=== PATIENT | female | born 1995 | race African-American/Black ===

== ENCOUNTER 2022-08-21 05:54 | Inpatient (IN) | payer SELFPAY ==
[2022-08-21] VITALS (7 sets, daily range): BP systolic 98–127; BP diastolic 40–82; O2SAT 94–98
[~2022-08-21] VITALS: Ht 157.5 cm; Wt 65.8 kg
[2022-08-21] MEDS ORDERED: ALBU6.7H6 INH (06:13)
[2022-08-21] MEDS ORDERED: ALBU2.5V10 INH (06:13)
[2022-08-21] MEDS ORDERED: ADENOSINE 6MG/2ML INJECTION (J0153) IV STA ×3 (06:15→06:33)
[2022-08-21 06:21] LABS: BASO % 0.2 % (0.0-1.0); EOS # 0.1 10^3/uL (0.0-0.5); EOS % 0.9 % (0.0-3.0); HEMATOCRIT 41.6 % (36.0-47.0); HEMOGLOBIN 13.6 g/dl (12.0-15.5); LYMPH # 0.5 10^3/uL (1.5-5.0); LYMPH % 4.3 % (24.0-44.0); MEAN CORPUSCULAR HGB CONC 32.7 g/dl (32.0-36.5); MEAN CORPUSCULAR VOLUME 88.7 fl (80.0-96.0); MONO # 0.7 10^3/uL (0.0-0.8); MONO % 6.3 % (2.0-8.0); NEUTROPHILS # 9.7 10^3/uL (1.5-8.5); NEUTROPHILS % 87.8 % (36.0-66.0); PLATELET COUNT, AUTOMATED 235 10^3/uL (150-450); RED BLOOD COUNT 4.69 10^6/uL (4.00-5.40); WHITE BLOOD COUNT 11.1 10^3/uL (4.0-10.0)
[2022-08-21] MEDS ORDERED: NS 1,000 ML IV STA (06:33)
[2022-08-21] MEDS ORDERED: cefTRIAXone SOD 1 GM in D5W MINI-BAG PLUS 50 ML IV ONE (06:45)
[2022-08-21] MEDS ORDERED: ISOVUE-370 76% 100ML VIAL As Ordered ONE (07:08)
[2022-08-21] MEDS ORDERED: ACETAMINOPHEN TAB 650MG DOSE (2X325MG) PO ONE (07:10)
[2022-08-21 07:17] LABS: BLOOD UREA NITROGEN 11 MG/DL (9-23); CALCIUM LEVEL 8.8 MG/DL (8.5-10.1); CARBON DIOXIDE LEVEL 21 MMOL/L (20-31); CHLORIDE LEVEL 101 MMOL/L (98-107); CK-MB VALUE MASS < 1.0 NG/ML (<3.6); CPK CREATINE PHOSPHOKINASE 49 U/L (34-145); CREATININE FOR GFR 0.94 MG/DL (0.55-1.30); GLOMERULAR FILTRATION RATE > 60.0 (>60); GLUCOSE, FASTING 139 MG/DL (60-100); MB/CK RELATIVE INDEX 2.04 (< OR =4); SODIUM LEVEL 134 MMOL/L (136-145)
[2022-08-21] MEDS ORDERED: NS 1,000 ML IV ONE (07:30)
[2022-08-21 07:48] LABS: HCG, SERUM QUALITATIVE NEGATIVE (NEGATIVE)
[2022-08-21] MEDS ORDERED: IBUPROFEN 600MG TAB PO ONE (08:25)
[2022-08-21] MEDS ORDERED: OSELTAMIVIR PHOSPHATE 75 MG CAP (TAMIFLU) PO ONE (08:40)
[2022-08-21] MEDS ORDERED: IPRATROPIUM 0.5MG/ALBUTEROL 2.5MG INH SOL UD 3ML (DUONEB) NEB ONE (08:40)
[2022-08-21] MEDS ORDERED: NS 500 ML IV ONE (08:50)
[2022-08-21] MEDS ORDERED: PRED20TA PO (09:20)
[2022-08-21] MEDS ORDERED: HOME MED LIST COMPLETE! XX SCH (09:20)
[2022-08-21] MEDS ORDERED: AZIT-12 PO (09:20)
[2022-08-21] MEDS ORDERED: MOM 30ML SUSPENSION UDC PO PRN (09:45)
[2022-08-21] MEDS ORDERED: MAALOX 30 ML SUSP *UDC PO PRN (09:45)
[2022-08-21] MEDS ORDERED: ALBUTEROL SULFATE 2.5 MG/0.5 ML INH NEB SOLN NEB PRN (09:45)
[2022-08-21] MEDS ORDERED: ACETAMINOPHEN TAB 650MG DOSE (2X325MG) PO PRN (11:00)
[2022-08-21] MEDS ORDERED: IPRATROPIUM 0.5MG/ALBUTEROL 2.5MG INH SOL UD 3ML (DUONEB) NEB SCH (12:00)
[2022-08-21] MEDS ORDERED: NS 1,000 ML IV SCH (13:25)
[2022-08-21] MEDS: ENOXAPARIN 40MG/0.4ML SYRINGE (J1650 PER 10MG) SC SCH (13:49)
[2022-08-21] MEDS: methylPREDNISolone 40MG 1ML VIAL IV SCH ×2 (13:49→21:16)
[2022-08-21] MEDS: IPRATROPIUM 0.5MG/ALBUTEROL 2.5MG INH SOL UD 3ML (DUONEB) NEB SCH ×3 (13:54→19:39)
[2022-08-21] MEDS ORDERED: methylPREDNISolone 125MG 2ML VIAL IV SCH (14:00)
[2022-08-21] MEDS: LEVALBUTEROL 1.25 MG/0.5 ML CONCENTRATE NEB NEB PRN ×2 (17:49→20:24)
[2022-08-21 18:41] LABS: THYROID STIMULATING HORMONE 0.449 uIU/ML (0.55-4.78); TOTAL T3 99.5 NG/DL (60.0-181.0)
[2022-08-21] MEDS: OSELTAMIVIR PHOSPHATE 75 MG CAP (TAMIFLU) PO SCH (20:17)
[2022-08-21] MEDS: DOCUSATE SODIUM 100MG CAPSULE PO SCH (20:23)
[2022-08-21] MEDS ORDERED: ALPRAZolam 0.5 MG TAB PO ONE (23:20)
[2022-08-22] VITALS (10 sets, daily range): BP systolic 100–110; BP diastolic 55–63; O2SAT 95–97
[2022-08-22] MEDS: LEVALBUTEROL 1.25 MG/0.5 ML CONCENTRATE NEB NEB PRN ×2 (00:18→06:06)
[2022-08-22] MEDS: methylPREDNISolone 40MG 1ML VIAL IV SCH (05:54)
[2022-08-22 06:09] LABS: BASO % 0.1 % (0.0-1.0); HEMATOCRIT 36.5 % (36.0-47.0); LYMPH # 0.4 10^3/uL (1.5-5.0); LYMPH % 3.8 % (24.0-44.0); MEAN CORPUSCULAR HEMOGLOBIN 29.6 pg (27.0-33.0); MEAN CORPUSCULAR HGB CONC 32.9 g/dl (32.0-36.5); MEAN CORPUSCULAR VOLUME 90.1 fl (80.0-96.0); MONO # 0.5 10^3/uL (0.0-0.8); NEUTROPHILS # 8.9 10^3/uL (1.5-8.5); NEUTROPHILS % 90.8 % (36.0-66.0); PLATELET COUNT, AUTOMATED 219 10^3/uL (150-450); RED BLOOD COUNT 4.05 10^6/uL (4.00-5.40); WHITE BLOOD COUNT 9.8 10^3/uL (4.0-10.0)
[2022-08-22 06:46] LABS: BLOOD UREA NITROGEN 10 MG/DL (9-23); CALCIUM LEVEL 8.1 MG/DL (8.5-10.1); CARBON DIOXIDE LEVEL 20 MMOL/L (20-31); CHLORIDE LEVEL 108 MMOL/L (98-107); CREATININE FOR GFR 0.67 MG/DL (0.55-1.30); GLOMERULAR FILTRATION RATE > 60.0 (>60); GLUCOSE, FASTING 158 MG/DL (60-100); POTASSIUM SERUM 4.1 MMOL/L (3.5-5.1); SODIUM LEVEL 139 MMOL/L (136-145)
[2022-08-22] MEDS: IPRATROPIUM 0.5MG/ALBUTEROL 2.5MG INH SOL UD 3ML (DUONEB) NEB SCH ×3 (08:16→15:39)
[2022-08-22] MEDS: ENOXAPARIN 40MG/0.4ML SYRINGE (J1650 PER 10MG) SC SCH (08:46)
[2022-08-22] MEDS: OSELTAMIVIR PHOSPHATE 75 MG CAP (TAMIFLU) PO SCH (08:46)
[2022-08-22] MEDS ORDERED: predniSONE 20 MG TAB PO SCH (09:00)
[2022-08-22] MEDS: DOCUSATE SODIUM 100MG CAPSULE PO SCH (09:00)
[2022-08-22] MEDS ORDERED: OSELTAMIVIR PHOSPHATE 30MG CAPSULE PO SCH (09:45)
[2022-08-22] MEDS ORDERED: SERTRALINE HCL 25 MG TABLET PO SCH (11:35)
[2022-08-22] MEDS ORDERED: METOPROLOL TART 12.5 MG PER 1/2 TAB PO SCH (11:35)
[2022-08-22] MEDS ORDERED: METO1TAB87 PO (16:35)
[2022-08-22] MEDS ORDERED: SERT25TA21 PO (16:35)
[2022-08-22] MEDS ORDERED: ADVA45AE INH (16:35)
[2022-08-22] MEDS ORDERED: OSEL75CA2 PO (16:35)
[2022-08-22] MEDS ORDERED: PRED20TA PO (16:35)
[2022-08-22] MEDS ORDERED: LEVAINH INH (16:35)
[2022-08-22] MEDS ORDERED: XANA0.5T PO (16:35)
[2022-08-23] MEDS ORDERED: predniSONE 20 MG TAB PO SCH (09:00)
== END 2022-08-22 18:03 | disposition home or self-care (01) | DRG 141 ==
LOC: EDBD 05:54 → M ED 05:54 → M ED INP 05:55 → OBSVTOIN 10:13 → ENRESERV 10:37 → M PCU 12:31
PROVIDERS: ADMIT Internal Medicine; ATTEND Internal Medicine
DX: J45.21 Mild intermittent asthma with (acute) exacerbation (principal); D86.0 Sarcoidosis of lung; J96.01 Acute respiratory failure with hypoxia; J09.X2 Influenza due to identified novel influenza A virus with other respiratory manifestations; F41.9 Anxiety disorder, unspecified; R00.0 Tachycardia, unspecified; E87.20 Acidosis, unspecified; Z79.52 Long term (current) use of systemic steroids; Z79.899 Other long term (current) drug therapy; Z79.2 Long term (current) use of antibiotics; Z88.8 Allergy status to other drugs, medicaments and biological substances; Z20.822 Contact with and (suspected) exposure to COVID-19